=== PATIENT | male | born 1980 | race Caucasian/White ===

== ENCOUNTER → 2017-11-05 | Outpatient (CLI) | payer OTHER | LOC: LAB 17:12 | PROVIDERS: ATTEND Surgery | DX: Z02.9 Encounter for administrative examinations, unspecified (principal) | CPT/HCPCS: 88302 ==

== ENCOUNTER → 2017-12-25 | Outpatient (CLI) | payer OTHER | LOC: LAB 08:53 | PROVIDERS: ATTEND Surgery | DX: Z02.9 Encounter for administrative examinations, unspecified (principal) ==